=== PATIENT | female | born 1970 | race Caucasian/White ===

== ENCOUNTER 2024-07-14 08:33 | Emergency (ER) | payer BC ==
[2024-07-14] MEDS: Ketorolac 60 MG/2 ML SDV IM ONE (09:34)
== END 2024-07-14 10:34 | disposition home or self-care (01) ==
LOC: JD.ED 08:33 → EDBD 08:33 → JD.ED 10:34
DX: S40.021A Contusion of right upper arm, initial encounter (principal); E03.9 Hypothyroidism, unspecified; Z86.16 Personal history of COVID-19; Z90.710 Acquired absence of both cervix and uterus; Z79.899 Other long term (current) drug therapy; W18.30XA Fall on same level, unspecified, initial encounter
CPT/HCPCS: 73060; 73090; 96372; 99283; J1885; 99282

== ENCOUNTER 2024-11-16 07:15 | Day surgery (SDC) | payer BC ==
[2024-11-16] MEDS: Lactated Ringers 1,000 ML IV SCH (07:00)
[2024-11-16] MEDS: oxyCODONE ER 10 MG TAB.ER PO SCH (07:12)
[2024-11-16] MEDS: Acetaminophen 325 MG Tab PO SCH (07:12)
[2024-11-16] MEDS: Pregabalin 25 MG Cap PO SCH (07:13)
[~2024-11-16 07:15] MED LIST: Sodium Chloride 0.9% 10 ML Syringe FLUSH PRN; Sodium Chloride 0.9% 10 ML Syringe FLUSH SCH
[2024-11-16] MEDS ORDERED: Propofol 200 MG/20 ML SDV ONE (07:39)
[2024-11-16] MEDS ORDERED: Midazolam 1 MG/ML 2 ML SDV ONE (07:39)
[2024-11-16] MEDS ORDERED: fentaNYL 100 MCG/2 ML SDV ONE (07:39)
[2024-11-16] MEDS ORDERED: Ondansetron 4 MG/2 ML SDV ONE (07:40)
[2024-11-16] MEDS ORDERED: Rocuronium 50 MG/5 ML Vial ONE (07:40)
[2024-11-16] MEDS ORDERED: dexmedeTOMIDine HCl 200 MCG/2 ML SDV ONE (07:42)
[2024-11-16] MEDS ORDERED: Ropivacaine 0.5% 5 MG/ML 30 ML SDV ONE (07:42)
[2024-11-16] MEDS ORDERED: ceFAZolin 2 GM Vial ONE (09:11)
[2024-11-16] MEDS ORDERED: ePHEDrine 50 MG/ML SDV ONE ×2 (09:14→10:04)
[2024-11-16] MEDS ORDERED: Dexamethasone 4 MG/ML 5 ML MDV ONE (09:27)
[2024-11-16] MEDS ORDERED: Ondansetron 4 MG/2 ML SDV IVPUSH PRN (09:42)
[2024-11-16] MEDS ORDERED: fentaNYL 100 MCG/2 ML SDV IVPUSH PRN (09:42)
[2024-11-16] MEDS ORDERED: HYDROmorphone 0.5 MG/0.5 ML Syringe IVPUSH PRN (09:42)
[2024-11-16] MEDS ORDERED: Ketorolac 30 MG/ML SDV ONE (09:58)
[2024-11-16] MEDS ORDERED: Sugammadex Sodium 200 MG/2 ML VIAL IV ONE (09:58)
[2024-11-16] MEDS: Tranexamic Acid 1,000 MG/10 ML Vial ONE (10:12)
[2024-11-16] MEDS: VANCOmycin 1 GM SDV ONE (10:12)
[2024-11-16] MEDS ORDERED: oxyCODONE 5 MG Tab PO PRN (11:26)
== END 2024-11-16 14:00 | disposition home or self-care (01) ==
LOC: JD.SDS 07:15
PROVIDERS: ATTEND Orthopaedic Surgery
DX: M75.101 Unspecified rotator cuff tear or rupture of right shoulder, not specified as traumatic (principal); M12.811 Other specific arthropathies, not elsewhere classified, right shoulder; E03.9 Hypothyroidism, unspecified; Z79.82 Long term (current) use of aspirin; Z79.899 Other long term (current) drug therapy; Z79.890 Hormone replacement therapy
CPT/HCPCS: 23472; 64415; 76000; 97110; 97161; 97530; A9270; C1713; C1769; C1776; J0690; J1100; J1885; J2250; J2405; J2704; J2795; J3010; J7120; 01638; J3490